=== PATIENT | male | born 1950 | race Two or more races ===

== ENCOUNTER 2018-01-18 10:47 | Outpatient (CLI) | payer OTHER ==
[~2018-01-18 10:47] MED LIST: ASA325 M1 PO; ASA81 MG; GABAPENTIN100 MG PO; HUMULIN R500 U/ML; LASIX40 MG PO; NOVOLIN 70/30 V10 ML; PLAVIX75 MG PO; TAMS0.4C; TOPROL XL200 MG; ZOCOR20 MG; [UNRECOGNIZED DRUG - OTHER]; [UNRECOGNIZED DRUG - OTHER]
== END 2018-01-18 17:00 | disposition home or self-care (01) ==
LOC: SONOGRAMA 10:47 → MAMO-SONO 11:15 → SONOGRAMA 17:00
DX: R59.9 Enlarged lymph nodes, unspecified (principal)

== ENCOUNTER → 2018-02-10 | Emergency (ER) | payer OTHER ==
[~2018-02-10] VITALS: Ht 162.6 cm; Wt 81.6 kg
== END | disposition home or self-care (01) ==
LOC: ER 13:48
DX: G45.9 Transient cerebral ischemic attack, unspecified (principal)

== ENCOUNTER 2018-03-31 07:27 | Emergency (ER) | payer OTHER ==
[~2018-03-31] VITALS: Ht 162.6 cm; Wt 77.1 kg
== END 2018-03-31 13:17 | disposition home or self-care (01) ==
LOC: ER 07:27
DX: S00.83XA Contusion of other part of head, initial encounter (principal); W18.39XA Other fall on same level, initial encounter; Y93.89 Activity, other specified; Y92.89 Other specified places as the place of occurrence of the external cause; Y99.8 Other external cause status

== ENCOUNTER 2018-04-16 15:30 | Emergency (ER) | payer OTHER ==
[~2018-04-16] VITALS: Ht 162.6 cm; Wt 83.9 kg
== END 2018-04-16 22:24 | disposition home or self-care (01) ==
LOC: ER 15:30
DX: J40 Bronchitis, not specified as acute or chronic (principal)

== ENCOUNTER 2018-08-27 07:48 | Emergency (ER) | payer OTHER ==
[~2018-08-27] VITALS: Ht 162.6 cm; Wt 79.4 kg
[2018-08-27] MEDS ORDERED: FORTAMET1000 MG PO (08:08)
== END 2018-08-27 11:21 | disposition home or self-care (01) ==
LOC: ER 07:48
DX: K57.30 Diverticulosis of large intestine without perforation or abscess without bleeding (principal); R10.9 Unspecified abdominal pain

== ENCOUNTER 2019-05-31 04:16 | Emergency (ER) | payer OTHER ==
[~2019-05-31] VITALS: Ht 157.5 cm; Wt 81.2 kg
[~2019-05-31 04:16] MED LIST changes: +FORTAMET1000 MG PO
[2019-05-31] MEDS ORDERED: LANTUS SOL100 UNIT/1 (04:24)
== END 2019-05-31 20:51 | disposition home or self-care (01) ==
LOC: ER 04:16 → CPU-OBS 04:19 → ER 20:51
DX: I20.0 Unstable angina (principal); R07.89 Other chest pain; J40 Bronchitis, not specified as acute or chronic
CPT/HCPCS: 93005; G0378; G0379

== ENCOUNTER 2019-10-19 13:54 | Emergency (ER) | payer OTHER ==
[~2019-10-19] VITALS: Ht 162.6 cm; Wt 79.4 kg
[~2019-10-19 13:54] MED LIST changes: +LANTUS SOL100 UNIT/1
== END 2019-10-19 21:21 | disposition home or self-care (01) ==
LOC: ER 13:54
DX: E11.65 Type 2 diabetes mellitus with hyperglycemia (principal); M25.551 Pain in right hip; G89.11 Acute pain due to trauma

== ENCOUNTER 2019-11-12 18:27 | Emergency (ER) | payer OTHER ==
[~2019-11-12] VITALS: Ht 162.6 cm; Wt 79.4 kg
== END 2019-11-12 23:40 | disposition home or self-care (01) ==
LOC: ER 18:27
DX: J06.9 Acute upper respiratory infection, unspecified (principal)

== ENCOUNTER 2020-10-19 08:48 | Outpatient (CLI) | payer OTHER | END 2020-10-19 08:52 | disposition home or self-care (01) | LOC: RAD 08:48 | PROVIDERS: ATTEND Internal Medicine Pulmonary Disease | DX: M48.07 Spinal stenosis, lumbosacral region (principal); J32.0 Chronic maxillary sinusitis; R06.09 Other forms of dyspnea; I10 Essential (primary) hypertension; J20.8 Acute bronchitis due to other specified organisms; I25.10 Atherosclerotic heart disease of native coronary artery without angina pectoris ==

== ENCOUNTER 2021-01-21 08:14 | Outpatient (CLI) | payer OTHER | END 2021-01-21 08:16 | disposition home or self-care (01) | LOC: NUCLEAR 08:14 | PROVIDERS: ATTEND Internal Medicine Cardiovascular Disease | DX: I20.1 Angina pectoris with documented spasm (principal) | CPT/HCPCS: 78452; 93017; A9500; J0153 ==

== ENCOUNTER 2022-12-07 11:46 | Emergency (ER) | payer OTHER ==
[~2022-12-07] VITALS: Ht 162.6 cm; Wt 78.9 kg
[2022-12-07] MEDS ORDERED: PROSCAR5 MG PO (12:50)
== END 2022-12-07 16:50 | disposition home or self-care (01) ==
LOC: ER 11:46
DX: J06.9 Acute upper respiratory infection, unspecified (principal); I10 Essential (primary) hypertension; N40.0 Benign prostatic hyperplasia without lower urinary tract symptoms; N18.9 Chronic kidney disease, unspecified; R73.9 Hyperglycemia, unspecified; Z88.8 Allergy status to other drugs, medicaments and biological substances

== ENCOUNTER 2023-09-05 08:50 | Emergency (ER) | payer OTHER ==
[~2023-09-05] VITALS: Ht 160 cm; Wt 79.8 kg
[~2023-09-05 08:50] MED LIST changes: +PROSCAR5 MG PO
[2023-09-05 09:58] LABS: HEMATOCRIT 42.4 % (39.0-48.0); HEMOGLOBIN 14.7 g/dL (13-16.00); MEAN CELL VOLUME 91.6 fL (80.0-100.00); MEAN CORPUSCULAR HEMOGLOBIN 31.7 pg (27.00-32.0); MEAN CORPUSCULAR HGB CONC 34.6 g/dl (32.0-36.0); PLATELET COUNT 193 K/uL (150-450); RED BLOOD COUNT 4.63 M/uL (4.00-6.00); RED CELL DISTRIBUTION WIDTH 14.2 % (11.5-14.5)
[2023-09-05 10:29] LABS: ALBUMIN 3.9 gm/dL (3.4-5.0); BILIRUBIN TOTAL 0.87 mg/dL (0.3-1.2); CALCIUM 9.2 mg/dL (8.5-10.1); CREATININE SERUM 1.14 mg/dL (0.70-1.30); GFR 62.97; GLOBULINA 3.6 G/DL (2.4-3.5); POTASSIUM 4.25 mEq/L (3.5-5.1); TOTAL PROTEIN 7.5 gm/dL (6.4-8.2)
[2023-09-05 12:08] LABS: ABG PH 7.436 (7.35-7.45); ABG PO2 68.8 mmHg (80-100); SaO2 94.1 %
[2023-09-05 12:09] LABS: BASE EXCESS -0.1 mmol/l; BICARBONATE 23.7 mmol/l (23-25); Tco2 24.8 mmol/l
[2023-09-05 12:10] LABS: puncture site RADIAL LEFT
[2023-09-05 12:11] LABS: allen test SATISFACTORY; o2 21 %
[2023-09-05 12:38] LABS: INR 1.02; PARTIAL THROMBOPLASTIN TIME 27.3 SECONDS (22.0-34.0); PROTHROMBIN TIME 10.7 SECONDS (9.0-11.5)
== END 2023-09-05 13:43 | disposition home or self-care (01) ==
LOC: ER 08:50
PROVIDERS: General Practice
DX: J44.9 Chronic obstructive pulmonary disease, unspecified (principal); Z20.822 Contact with and (suspected) exposure to COVID-19; I10 Essential (primary) hypertension; E11.9 Type 2 diabetes mellitus without complications; Z79.84 Long term (current) use of oral hypoglycemic drugs